=== PATIENT | female | born 1960 | race African-American/Black ===

== ENCOUNTER 2016-10-08 19:51 | Emergency (ER) | payer OTHER ==
--- NOTE | 2016-10-08 21:21 | PROVIDER DOCUMENTATION ---
HPI-General Adult - General Chief Complaint: Toothache Stated Complaint: TOOTHACHE Time Seen by Provider: 10/08/16 20:45 Source: patient Allergies/Adverse Reactions: Patient Allergies Allergy/AdvReac Type Severity Reaction Status Date / Time Corticosteroids Allergy Intermediate CONSTIPATIO Verified 05/13/16 22:13 (Glucocorticoids) N ketorolac tromethamine * Allergy Mild ITCHING Verified 05/13/16 22:13 [From Toradol] morphine Allergy Mild ITCHING Verified 05/13/16 22:13 Penicillins Allergy Unknown "MAKES ME Verified 05/13/16 22:13 SICK" Home Medications: Home Medication List Medication Instructions Recorded Confirmed Last Taken Type Citalopram [Celexa] 40 mg PO DAILY 03/17/13 05/13/16 04/10/15 20:30 History Levothyroxine Sodium [Synthroid] 112 microgm PO DAILY 03/17/13 05/13/16 07:00 History Simvastatin 20 mg PO HS 03/17/13 05/13/16 04/10/15 17:00 History Clonazepam [Klonopin] 1 mg PO BID 06/04/13 05/13/16 04/10/15 20:30 History Oxycodone HCl/Acetaminophen 1 tab PO TID 05/18/14 05/13/16 04/10/15 20:00 History [Percocet 10-325 mg Tablet] Omeprazole [Prilosec] 20 mg PO DAILY 02/08/16 05/13/16 Unknown History Promethazine [Phenergan] 25 mg PO Q6H PRN PRN #20 tablet 02/08/16 05/13/16 Unknown Rx Metformin [Glucophage] 500 mg PO BID CC #60 tablet 02/09/16 05/13/16 Unknown Rx Sitagliptin [Januvia] 100 mg PO DAILY #30 tablet 02/09/16 05/13/16 Unknown Rx Metformin HCl 500 mg PO BID #60 tablet 03/09/16 05/13/16 Unknown Rx Promethazine [Phenergan] 25 mg PO Q6H PRN PRN #30 tablet 03/09/16 05/13/16 Unknown Rx Sitagliptin Phosphate [Januvia] 100 mg PO DAILY #30 tablet 03/09/16 05/13/16 Unknown Rx Simvastatin [Zocor] 20 mg PO DAILY 05/13/16 05/13/16 Unknown History Triamcinolone 0.025% Cr [Kenalog 1 applicatn TOP TID #1 tube 05/13/16 Unknown Rx 0.025% Cream] Diclofenac Sodium 50 mg PO Q8-12H PRN PRN #30 07/15/16 Unknown Rx tablet. Methocarbamol [Robaxin] 500 mg PO BID #20 tablet 07/15/16 Unknown Rx Acetaminophen/Diphenhydramine 1 each PO Q6-8H PRN PRN #30 tablet 10/08/16 Unknown Rx [Percogesic 325-12.5 mg Tablet] Benzocaine 20% Gel [Orajel Maximum 1 applicatn TOP 4XDAY PRN PRN #1 10/08/[address] 20% Gel] tube Clindamycin [Cleocin] 150 mg PO Q6HR #30 capsule 10/08/16 Unknown Rx - History of Present Illness -Gen Adult Nature of Presenting Problems: Patient is a 56yo female that presents with a toothache x2.5 weeks. Pain is 10/ 10, intermittent and throbbing to the R lower molar area with radiation to R ear , R jaw, and R lateral neck. Patient has not been to the dentist in ~2.5 years. She has tried aleve, percocet, and ibuprofen at home, but the pain has persisted despite these treatments. Denies fever, chills, CP, or SOB. Patient cries due to pain during interview and exam. Location of Pain/Injury: reports: face Pain Radiation: reports: jaw Quality of Pain: reports: aching Severity: reports: moderate Onset/Duration: reports: other (see hpi) Timing: reports: still present Similar Symptoms Previously?: Yes Recently seen or treated by another doctor?: No Review of Systems - Adult - REVIEW OF SYSTEMS - ADULT Constitutional: reports: no symptoms reported. denies: chills, fever Eyes: reports: no symptoms reported. denies: discharge, dry eyes Ears, Nose, Mouth & Throat: reports: ear pain, mouth/dental pain. denies: ear discharge, nose pain, loose teeth Cardiovascular: reports: no symptoms reported. denies: chest pain, edema Respiratory: reports: no symptoms reported. denies: chronic cough, cough Gastrointestinal: reports: no symptoms reported. denies: abdominal pain, hematemesis Genitourinary: reports: no symptoms reported. denies: dysuria, discharge Musculoskeletal: reports: no symptoms reported. denies: bone pain, back pain Integumentary: reports: no symptoms reported. denies: hives, hair loss Neurological: reports: no symptoms reported. denies: ataxia, dizziness/vertigo Psychiatric: reports: no symptoms reported. denies: anxiety, anti-depressant use Endocrine: reports: no symptoms reported Hematologic/Lymphatic: reports: no symptoms reported Allergic/Immunologic: reports: no symptoms reported All Other Systems: Reviewed and Negative Past History - Adult - PAST MEDICAL HISTORY-ADULT Review of Records: reports: Old Records Reviewed, Nursing Assessment Review, Medications Reviewed, Social history reviewed & non-contributory. Major Childhood Illnesses: reports: denies history Cardiovascular: reports: HTN Respiratory: reports: denies history Gastrointestinal: reports: GERD Obstetrical/Gynecological: reports: denies history Genitourinary: reports: denies history Musculoskeletal: reports: other (carpal tunnel) Neurological: reports: denies history Endocrine/Immune: reports: Diabetes, thyroid disorder Other Conditions: reports: other cancer (breast) - PRIOR SURGERIES/PROCEDURES Surgical/Procedure History: reports: , orthopedic (extremity), back/ neck - IMMUNIZATION STATUS Childhood Immunizations: See Nurse Assessment Flu Vaccine: See Nurse Assessment - FAMILY HISTORY Family History: reviewed, not pertinent Physical Exam-General - PHYSICAL EXAM-ADULT Initial Vital Signs Reviewed: Yes - CONSTITUTIONAL General Appearance: alert, no apparent distress - EYES Eyes: PERRL/EOMI, pink conjunctivae - HEAD, EARS, NOSE, MOUTH & THROAT HENMT: normocephalic/atraumatic, moist mucous membranes, dental decay, TM abnormal (R erythema). negative: pharynx normal, angioedema, pharyngeal erythema, tonsillar exudate - NECK Neck: non-tender, full range of motion, supple, normal inspection. negative: limited range of motion, lymphadenopathy, meningismus - RESPIRATORY Respiratory: chest non-tender, lungs clear, normal breath sounds, no pleuratic chest pain, no respiratory distress, no accessory muscle use. negative: stridor , wheezing - CARDIOVASCULAR Cardiovascular: normal peripheral pulses, regular rate, rhythm, no edema, no gallop, no JVD, no murmur - GASTROINTESTINAL (ABDOMEN) Abdominal Exam: normal bowel sounds, non tender, soft - MUSCULOSKELETAL Back Exam: normal inspection, no CVA tenderness, no vertebral tenderness Extremity: normal range of motion, non-tender, normal gait, normal inspection - SKIN Integumentary: normal color, normal turgor, warm/dry - NEUROLOGIC Neurologic: grossly normal, no motor/sensory deficits - PSYCHIATRIC Psych/Mental Status: normal mood/affect, normal thought content, normal thought process, oriented x 3 Progress - PLAN OF CARE/RESULTS Progress/Plan/Lab Results: Orders Category Date Time Status Clindamycin [Cleocin] Med 10/08/16 21:51 Discontinued 300 mg PO NOW ONE Tramadol [Ultram] Med 10/08/16 21:51 Discontinued 50 mg PO NOW ONE Vital Signs Temp Pulse Resp BP Pulse Ox 10/08/16 20:04 97.7 F 101 H 18 112/75 96 Corticosteroids (Glucocorticoids) Allergy (Intermediate, Verified 05/13/16 22:13 ) CONSTIPATION NOT SPECIFIC ABOUT WHICH OR TYPE OF "STEROIDS" ketorolac tromethamine * [From Toradol] Allergy (Mild, Verified 05/13/16 22:13) ITCHING morphine Allergy (Mild, Verified 05/13/16 22:13) ITCHING Penicillins Allergy (Unknown, Verified 05/13/16 22:13) "MAKES ME SICK" Citalopram [Celexa] 40 mg PO DAILY 03/17/13 Levothyroxine Sodium [Synthroid] 112 microgm PO DAILY 03/17/13 Simvastatin 20 mg PO HS 03/17/13 Clonazepam [Klonopin] 1 mg PO BID 06/04/13 Oxycodone HCl/Acetaminophen [Percocet 10-325 mg Tablet] 1 tab PO TID 05/18/14 Omeprazole [Prilosec] 20 mg PO DAILY 02/08/16 Promethazine [Phenergan] 25 mg PO Q6H PRN PRN #20 tablet 02/08/16 Metformin [Glucophage] 500 mg PO BID CC #60 tablet 02/09/16 Sitagliptin [Januvia] 100 mg PO DAILY #30 tablet 02/09/16 Metformin HCl 500 mg PO BID #60 tablet 03/09/16 Promethazine [Phenergan] 25 mg PO Q6H PRN PRN #30 tablet 03/09/16 Sitagliptin Phosphate [Januvia] 100 mg PO DAILY #30 tablet 03/09/16 Simvastatin [Zocor] 20 mg PO DAILY 05/13/16 Triamcinolone 0.025% Cr [Kenalog 0.025% Cream] 1 applicatn TOP TID #1 tube 05/13 Diclofenac Sodium 50 mg PO Q8-12H PRN PRN #30 tablet. 07/15/16 Methocarbamol [Robaxin] 500 mg PO BID #20 tablet 07/15/16 Departure - Departure Time of Disposition Order: 21:56 DIAGNOSIS: Infected dental caries Otitis media Qualifiers: Otitis media type: in diseases classified elsewhere Laterality: right Qualified Code(s): H67.1 - Otitis media in diseases classified elsewhere, right ear Disposition: HOME 01 Certified Medical Emergency: Urgent Condition: Good Additional Instructions: Take medication as prescribed. Follow up with an dentist. ED Follow Up Instructions: You have been treated by a care provider in the Emergency Department. These instructions are being provided to you so you can have an understanding of how to care for yourself upon discharge. Upon discharge from the Emergency Department, you are responsible for making arrangements for follow-up care by a physician of your choice. Take all prescribed medications as directed. Return to the Emergency Department immediately for any new or worsening symptoms. You may call the Physician Referral phone number at [phone] to obtain a list of Physicians who are taking new patients. Prescriptions: Clindamycin [Cleocin] 150 mg PO Q6HR #30 capsule Benzocaine 20% Gel [Orajel Maximum St 20% Gel] 1 applicatn TOP 4XDAY PRN PRN #1 tube PRN Reason: Pain Acetaminophen/Diphenhydramine [Percogesic 325-12.5 mg Tablet] 1 each PO Q6-8H PRN PRN #30 tablet PRN Reason: Pain Referrals: Ricardo Ibarra MD [Primary Care Provider] - Can Mckenzie DMD [DENTISTRY] - Attestation - Physician/ LORAINE Attestation Patient care was provided by Advanced Practice Provider:: Yes Advanced Practice Provider:: Juan Carlos Case Advanced Practice Provider documentation review:: The Mid-level provider documentation, treatment plan and medical decision making was reviewed by the physician who agrees with all treatment and medical decision making by the MLP.
[2016-10-08] MEDS ORDERED: CLEOCIN PO ONE (21:51)
[2016-10-08] MEDS ORDERED: ULTRAM PO ONE (21:51)
[2016-10-08] MEDS ORDERED: CLEOCIN ONE (22:14)
[2016-10-08 22:40] VITALS: BP 117/83
== END 2016-10-08 22:42 | disposition home or self-care (01) ==
LOC: P.ED 19:51
DX: K04.7 Periapical abscess without sinus (principal); K02.9 Dental caries, unspecified; H67.1 Otitis media in diseases classified elsewhere, right ear; K08.89 Other specified disorders of teeth and supporting structures; R68.84 Jaw pain; I10 Essential (primary) hypertension; K21.9 Gastro-esophageal reflux disease without esophagitis; E11.9 Type 2 diabetes mellitus without complications; Z79.899 Other long term (current) drug therapy; E07.9 Disorder of thyroid, unspecified; Z85.3 Personal history of malignant neoplasm of breast
CPT/HCPCS: 99282